=== PATIENT | female | born 1995 | race Caucasian/White ===

== ENCOUNTER 2018-05-14 23:58 | Emergency (ER) | payer OTHER ==
[~2018-05-14] VITALS: Ht 160 cm; Wt 63.0 kg
[2018-05-15 00:50] VITALS: BP 106/71
== END 2018-05-15 00:50 | disposition home or self-care (01) ==
LOC: M.ERS 23:58
DX: O62.4 Hypertonic, incoordinate, and prolonged uterine contractions (principal); Z3A.37 37 weeks gestation of pregnancy; F17.210 Nicotine dependence, cigarettes, uncomplicated